=== PATIENT | male | born 1980 | race Caucasian/White ===

== ENCOUNTER 2023-08-30 07:28 | Emergency (ER) | payer OTHER, SELFPAY ==
[2023-08-30 07:37] VITALS: BP 123/81
[2023-08-30 09:37] LABS: % Basophils 0.8 % (0-2); % Eosinophils 2.9 % (0-6); % Immature Granulocytes 0.2 % (0-0.5); % Lymphocytes 23.9 % (20.5-51.1); % Monocytes 7.3 % (1.7-9.3); % Neutrophils 64.9 % (42.2-75.2); Absolute Basophils 0.1 10^3/uL (0-0.2); Absolute Eosinophils 0.2 10^3/uL (0-0.7); Absolute Lymphocytes 1.6 10^3/uL (1.2-3.4); Absolute Monocytes 0.5 10^3/uL (0.1-0.6); Absolute Neutrophils 4.3 10^3/uL (1.4-6.5); Hematocrit 44.6 % (39.0-52.0); Hemoglobin 16.1 g/dL (13.0-18.0); Mean Corp Hgb Conc. 36.1 g/dL (33.0-37.0); Mean Corpuscular Hgb 31.6 pg (27.0-31.0); Mean Corpuscular Volume 87.6 fL (80.0-94.0); Mean Platelet Volume 9.6 fL (7.4-10.4); Nucleated Red Blood Cells % 0 % (-); Platelet Count 285 10^3/uL (130-400); Red Blood Cell Count 5.09 10^6/uL (4.70-6.10); Red Cell Dist. Width 11.9 % (11.5-14.5); White Blood Cell Count 6.6 10^3/uL (4.8-10.8)
[2023-08-30 09:45] LABS: ALT (SGPT) 51 U/L (0-50); AST (SGOT) 29 U/L (17-59); Albumin 4.5 g/dl (3.5-5.0); Alkaline Phosphatase 61 U/L (38-126); Blood Urea Nitrogen 11 mg/dl (9-20); Calcium 9.6 mg/dl (8.4-10.2); Carbon Dioxide 26 mmol/L (22-30); Chloride 108 mmol/L (98-107); Glucose 95 mg/dl (70-99); Potassium 4.1 mmol/L (3.5-5.1); Sodium 138 mmol/L (135-145); Total Bilirubin 0.6 mg/dl (0.2-1.3); Total Protein 7.6 g/dl (6.3-8.2); eGFR > 60.00
--- NOTE | 2023-08-30 09:58 | ED.GENMED ---
History of Present Illness
General
Chief Complaint: Cardiac Symptoms
Source: patient
Exam Limitations: none
Time Seen by Provider: 08/30/23 08:17
Nursing documentation reviewed up to this point in time: agreed with
Travel History
Have you had any contact with someone who has COVID-19?: No
Do you have any symptoms of coronavirus? Fever > 100 degrees, chills, cough, shortness of breath, sore throat, loss of taste or smell, muscle aches, or headache?: No
History of Present Illness
History of Present Illness:
43-year-old male with past medical history of palpitations/tachycardia on propranolol who presents to the emergency department for evaluation after an episode of palpitations. Patient reports that he was a passenger car with his family to take his
son to a sporting event. Apparently about 45 minutes prior to arrival here he had onset of palpitations that he says were quite intense. He says it lasted for a minute or 2 and then got better but he was having 'after shocks' of transient
palpitations for about half hour after this. He came to the emergency room for assessment he says that since arriving here his symptoms seem to resolved he does not any symptoms at present. He says he did not pass out or feel dizzy. Did not have
any chest pain or shortness of breath. He says he has had similar symptoms in the past and seen cardiology, had cardiac monitoring, echocardiogram all of which was nondiagnostic. He has been on propranolol which had been controlling his symptoms.
Past History
Past History
ED Past Medical History: Other (Lyme)
ED Past Surgical History: None
Social History
Tobacco: Former smoker
Alcohol: Occasional
Personal: Other (Seperated)
Living: with family
Review of Systems
Review of Systems
All Other Systems: ROS reviewed and negative except as documented in HPI and ROS
Constitutional: Denies fever or chills
EENT: Denies sore throat or runny nose
Respiratory: Denies cough or trouble breathing
Cardiac: Reports palpitations; Denies chest pain, diaphoresis or syncope
ABD/GI: Denies abdominal pain, nausea, vomiting or diarrhea
: Denies flank pain
Musculoskeletal: Denies neck pain or back pain
Neurological: Denies dizzy, headache, weakness or numbness
Phy Exam
Physical Exam
Physical Exam:
General: Awake, alert, oriented x3; no acute distress
Head: Normocephalic, atraumatic
Eyes: Conjunctiva normal, sclera anicteric
Throat: Airway intact, handling secretions
Neck: Trachea midline, supple without meningismus
Lungs: Clear to auscultation bilaterally, no wheezing, rales, rhonchi
Heart: Regular rate and rhythm, no murmurs, gallops, or rubs
Abd: Soft, non distended, nontender
Neuro: Cranial nerves grossly intact, speech fluid
Skin: no rash
Extremities: No edema in extremities, equal pulses in all extremities
Scores
Heart Failure Risk
Heart Failure Risk Score: Not Applicable
Heart Score for Chest Pain Patients
STEMI patient?: Not applicable
Withdrawal Assessment of Alcohol
Withdrawal Assessment Completed?: Not applicable
Course
Orders/Labs/Results
Orders:
Orders
08/30/23 07:43
Electrocardiogram (*1) Urgent
Reason for Study: Palpitations
EKG- Treatment ONCE
08/30/23 09:26
Complete Blood Count/With Diff Urgent
Comprehensive Metabolic Panel Urgent
Abnormal Lab Results
08/30/23
09:26
MCH 31.6 H pg
(27.0-31.0)
Chloride 108 H mmol/L
(98-107)
ALT 51 H U/L
(0-50)
08/30/23 09:26
08/30/23 09:26
Vital Signs
Initial and Last Documented VS:
Initial Vital Signs
Temp Pulse Resp BP Pulse Ox
36.7 C 95 18 123/81 97
08/30/23 07:37 08/30/23 07:37 08/30/23 07:37 08/30/23 07:37 08/30/23 07:37
Last Documented Vital Signs
Temp Pulse Resp BP Pulse Ox
36.7 C 78 14 123/81 97
08/30/23 07:37 08/30/23 09:15 08/30/23 09:15 08/30/23 07:37 08/30/23 07:37
MDM/Problems Addressed
Differential Diagnosis Includes:
Dysrhythmia, PACs, PVCs, anxiety
MDM/Problems Addressed:
43-year-old male presents for evaluation after an episode of palpitations lasted on and off for about 30 minutes and then resolved. He had no accompanying symptoms currently is asymptomatic. Has had similar issue in the past without a clear
diagnosis. He is on a beta-jaret to help with this. Vital signs here are all within normal limits. Physical exam as above. His EKG shows normal sinus rhythm with no ectopy, first-degree AV block but no other significant abnormalities. There
is no sign of Brugada, normal QTc, no delta wave, no signs of HOCM. Lab work sent off including CBC and CMP which were unremarkable. We monitored on telemetry here for 3 hours without any events and patient has been asymptomatic. I think he is
stable for discharge at this point in time�he indicated that he plans to follow-up with cardiology as an outpatient and I think this is a reasonable plan. We did speak to him about return precautions including any dizziness, chest pain, breathing
issues or sustained palpitations. He feels comfortable with this plan. All questions answered.
*Pulse Oximetry
Patient hypoxic: no
*EKG
Interpreted by ED Provider?: Yes
Comparison EKG: no comparison EKG present
Heart Rate: 87
Rate: normal
Rhythm: sinus
[place]: normal axis
Interval: first degree heart block
QRS Pattern: normal QRS
Ischemia: no ischemia
*Critical Care Note
Total Time (30-74mins, 75-104mins- exclusive of procedures): Not Applicable
Data Reviewed
Source: patient and records
ED Attending Note
-
Portions of this chart may have been created with voice recognition software.� Occasional wrong word or��sound alike� substitutions may have occurred due to the inherent limitations of voice recognition software.
Discharge Plan
Departure
Patient Disposition: Home (Routine Discharge)
Date of Disposition: 08/30/23
Time of Disposition: 09:57
Patient with high blood pressure during this ER visit?: No
Discharge Problem:
Heart palpitations
Instructions: Palpitations ED
Prescriptions:
No Action
verapamil 120 mg Tablet Extended Release
120 mg PO DAILY Qty: 30 0RF
propranolol 20 mg Tablet
20 mg PO Q6H PRN (Reason: PALPITATION HR>130) Qty: 60 0RF
cetirizine [Zyrtec] 10 mg Tablet
10 mg PO DAILY
pantoprazole 40 mg Tablet,Delayed Release (Dr/Ec)
40 mg PO DAILY Qty: 30 0RF
Referrals:
Milton Ocasio MD [Active] - Call in 1-3 days for appt
Austin Cuadra MD [Family Provider] -
Activity Restrictions/Additional Instructions:
Thank you for visiting the Emergency Department at [facility]
1. Please schedule a follow up appointment as directed. Call first thing tomorrow morning to make an appointment.
2. If indicated, please take your medications as instructed and indicated on discharge paperwork.
3. If any of your symptoms do not improve, or persist, or become more severe within 6-12 hours, please return to the emergency department for further care.
4. Please return to the emergency department if you develop a headache, neck pain/stiffness, fever greater than 100.4F, chest pain, shortness of breath, persistent nausea, vomiting, slurred speech, difficulty walking, numbness/tingling, weakness,
signs of infection or any other symptoms that are worrisome to you.
Please call [phone] if you have any questions.
Interventions
Interventions:
ED- Cardiac Assessment Last Done: 08/30/23 08:27
[2023-08-30 10:23] VITALS: BP 100/64
== END 2023-08-30 10:35 | disposition home or self-care (01) ==
LOC: EMR 07:28
PROVIDERS: EMERGENCY PHYSICIAN Emergency Medicine; FAMILY PHYSICIAN Family Medicine
DX: R00.2 Palpitations (principal); R00.0 Tachycardia, unspecified; Z87.891 Personal history of nicotine dependence
CPT/HCPCS: 99284; 80053; 85025; 93005